=== PATIENT | male | born 1970 | race Caucasian/White ===

== ENCOUNTER 2017-01-19 11:27 | Observation (INO) | payer OTHER ==
[~2017-01-19] VITALS: Ht 165.1 cm; Wt 64.4 kg
[2017-01-19 11:55] LABS: HEMOGLOBIN 15.9 gm/dl (14.0-17.5); RED BLOOD COUNT 5.02 M/UL (4.20-5.50); WHITE BLOOD COUNT 13.2 K/UL (4.5-11.0)
[2017-01-19 12:16] LABS: BUN/CREATININE RATIO 13 (0-10)
[2017-01-19 15:46] LABS: BUN/CREATININE RATIO 15 (0-10)
[2017-01-20 04:25] LABS: HEMOGLOBIN 14.9 gm/dl (14.0-17.5); RED BLOOD COUNT 4.75 M/UL (4.20-5.50); WHITE BLOOD COUNT 12.3 K/UL (4.5-11.0)
[2017-01-20 04:58] LABS: BUN/CREATININE RATIO 16 (0-10)
[2017-01-21 04:04] LABS: HEMOGLOBIN 15.3 gm/dl (14.0-17.5); RED BLOOD COUNT 4.86 M/UL (4.20-5.50); WHITE BLOOD COUNT 10.8 K/UL (4.5-11.0)
[2017-01-21 04:31] LABS: BUN/CREATININE RATIO 14 (0-10)
[2017-01-21] MEDS ORDERED: ADULT LOW DOSE81 MG PO (17:35)
[2017-01-21] MEDS ORDERED: TRICOR 48 MG TA48 MG PO (17:37)
[2017-01-21] MEDS ORDERED: NIACIN CR 500500 MG PO (17:39)
[2017-01-21] MEDS ORDERED: NITROSTAT0.4 MG SL (17:40)
[2017-01-21] MEDS ORDERED: IMDUR ER TAB 3030 MG PO (17:41)
[2017-01-21] MEDS ORDERED: NORVASC 5 MG TAB5 MG PO (17:42)
[2017-07-10] MEDS ORDERED: HABITROL 14 MG P1 EA TD (09:38)
== END 2017-01-21 18:10 | disposition home or self-care (01) ==
LOC: ER1 11:27 → ZEROF 12:50 → MED SURG 4 14:14
PROVIDERS: Emergency Medicine; ADMIT Family Medicine
DX: R07.9 Chest pain, unspecified (principal); R00.1 Bradycardia, unspecified; E78.1 Pure hyperglyceridemia; I10 Essential (primary) hypertension; I16.1 Hypertensive emergency; I25.10 Atherosclerotic heart disease of native coronary artery without angina pectoris; D72.829 Elevated white blood cell count, unspecified; F17.210 Nicotine dependence, cigarettes, uncomplicated; Z88.0 Allergy status to penicillin; Z79.82 Long term (current) use of aspirin; Z79.899 Other long term (current) drug therapy; Z90.49 Acquired absence of other specified parts of digestive tract; Z98.890 Other specified postprocedural states
CPT/HCPCS: ECHO; 36415; 71010; 78452; 80048; 80053; 80061; 82550; 82553; 83036; 83735; 83874; 84439; 84443; 84484; 85025; 85027; 85610; 85730; 93005; 93017; 93306; 99285; A9502; G0378

== ENCOUNTER 2017-01-23 22:40 | Emergency (ER) | payer OTHER ==
[~2017-01-23 22:40] MED LIST: ADULT LOW DOSE81 MG PO; IMDUR ER TAB 3030 MG PO; NIACIN CR 500500 MG PO; NITROSTAT0.4 MG SL; NORVASC 5 MG TAB5 MG PO; TRICOR 48 MG TA48 MG PO
[2017-07-10] MEDS ORDERED: HABITROL 14 MG P1 EA TD (09:38)
== END 2017-01-23 23:50 | disposition home or self-care (01) ==
LOC: ER1 22:40
DX: L27.1 Localized skin eruption due to drugs and medicaments taken internally (principal); T46.7X5A Adverse effect of peripheral vasodilators, initial encounter
CPT/HCPCS: 99283; Q0163

== ENCOUNTER 2017-02-24 22:38 | Observation (INO) | payer OTHER ==
[~2017-02-24] VITALS: Ht 165.1 cm; Wt 64.9 kg
[2017-02-24 22:59] LABS: HEMOGLOBIN 14.7 gm/dl (14.0-17.5); RED BLOOD COUNT 4.66 M/UL (4.20-5.50); WHITE BLOOD COUNT 10.4 K/UL (4.5-11.0)
[2017-02-24 23:48] LABS: BUN/CREATININE RATIO 16 (0-10)
[2017-02-25] MEDS ORDERED: AMLODIPINE BESYL5 MG PO (02:30)
[2017-02-25] MEDS ORDERED: FENOFIBRATE145 MG PO (02:30)
[2017-02-25] MEDS ORDERED: COREG6.25 MG PO (02:31)
[2017-02-25] MEDS ORDERED: LIPITOR TAB 2020 MG PO (02:31)
[2017-02-25] MEDS ORDERED: PLAVIX 75 MG TA75 MG PO (02:32)
[2017-02-25] MEDS ORDERED: IMDUR ER TAB 3030 MG PO (18:18)
[2017-02-25] MEDS ORDERED: TRICOR 145 MG145 MG PO (18:18)
[2017-07-10] MEDS ORDERED: HABITROL 14 MG P1 EA TD (09:38)
== END 2017-02-25 18:50 | disposition home or self-care (01) ==
LOC: ER1 22:38 → M/S 02-25 00:33 → ZEROF 02-25 00:33 → M/S 02-25 01:59
PROVIDERS: Student in an Organized Health Care Education/Training Program; ADMIT Internal Medicine
DX: I25.110 Atherosclerotic heart disease of native coronary artery with unstable angina pectoris (principal); I10 Essential (primary) hypertension; E78.5 Hyperlipidemia, unspecified; F17.210 Nicotine dependence, cigarettes, uncomplicated; Z88.0 Allergy status to penicillin; Z79.82 Long term (current) use of aspirin; Z79.899 Other long term (current) drug therapy; Z90.49 Acquired absence of other specified parts of digestive tract; Z98.890 Other specified postprocedural states
CPT/HCPCS: 36415; 71010; 80053; 82550; 82553; 83874; 84484; 85025; 85610; 85730; 93005; 99285; G0378

== ENCOUNTER 2017-03-18 22:10 | Emergency (ER) | payer OTHER ==
[~2017-03-18 22:10] MED LIST changes: +AMLODIPINE BESYL5 MG PO; +COREG6.25 MG PO; +FENOFIBRATE145 MG PO; +LIPITOR TAB 2020 MG PO; +PLAVIX 75 MG TA75 MG PO; +TRICOR 145 MG145 MG PO
[2017-03-18 22:33] LABS: HEMOGLOBIN 14.4 gm/dl (14.0-17.5); RED BLOOD COUNT 4.56 M/UL (4.20-5.50); WHITE BLOOD COUNT 10.7 K/UL (4.5-11.0)
[2017-03-18 23:13] LABS: BUN/CREATININE RATIO 17 (0-10)
[2017-07-10] MEDS ORDERED: HABITROL 14 MG P1 EA TD (09:38)
== END 2017-03-19 00:46 | disposition left against medical advice (07) ==
LOC: ER1 22:10
PROVIDERS: Student in an Organized Health Care Education/Training Program
DX: R07.89 Other chest pain (principal); I10 Essential (primary) hypertension; E78.5 Hyperlipidemia, unspecified; I21.3 ST elevation (STEMI) myocardial infarction of unspecified site; F17.210 Nicotine dependence, cigarettes, uncomplicated; Z90.49 Acquired absence of other specified parts of digestive tract; Z95.1 Presence of aortocoronary bypass graft; Z88.0 Allergy status to penicillin; Z88.1 Allergy status to other antibiotic agents; Z79.899 Other long term (current) drug therapy
CPT/HCPCS: 36415; 71020; 80053; 82550; 82553; 83874; 84484; 85025; 93005; 99285

== ENCOUNTER → 2017-04-09 | Outpatient (CLI) | payer OTHER ==
[~2017-04-09] MED LIST changes: +HABITROL 14 MG P1 EA TD
[2017-04-09 12:22] LABS: BUN/CREATININE RATIO 14 (0-10)
== END ==
LOC: LAB 11:09
PROVIDERS: Internal Medicine Cardiovascular Disease
DX: R79.89 Other specified abnormal findings of blood chemistry (principal); E78.2 Mixed hyperlipidemia; Z79.899 Other long term (current) drug therapy
CPT/HCPCS: 36415; 80053; 80061; 82248

== ENCOUNTER → 2021-01-19 | Outpatient (CLI) | payer BC, OTHER ==
[~2021-01-19] MED LIST changes: -AMLODIPINE BESYL5 MG PO; +BRILINTA90 MG PO; +CLOPIDOGREL75 MG PO; +DOXYCYCLINE HY100 M2 PO; +HABITROL 21 MG P1 EA TD; +ISOSORBIDE MONO30 MG PO; +LISINOPRIL10 MG PO; +LOPRESSOR 25 MG25 MG PO; +METOPROLOL SUCC25 MG PO; +NORVASC10 MG PO; +PANTOPRAZOLE SO40 MG PO; +PRINIVIL10 MG PO; +PRINIVIL20 MG PO; +RANEXA1000 MG PO; +RANEXA500 MG PO; +TOPROL XL25 MG PO; +TOPROL XL50 MG PO; +TRICOR145 MG PO; +ZOFRAN ODT 4 MG4 MG PO; +ZOFRAN4 MG PO
== END ==
LOC: NM 09:00
DX: I20.0 Unstable angina (principal); R00.2 Palpitations; I21.09 ST elevation (STEMI) myocardial infarction involving other coronary artery of anterior wall; I10 Essential (primary) hypertension
CPT/HCPCS: 78452; A9502; J2785

== ENCOUNTER → 2021-01-24 | Outpatient (CLI) | payer BC, OTHER ==
[2021-01-24 12:26] LABS: BUN/CREATININE RATIO 16 (0-10)
== END ==
LOC: ECHO 01-19 11:00
PROVIDERS: Nurse Practitioner
DX: I20.0 Unstable angina (principal); R00.2 Palpitations; R07.89 Other chest pain; E78.5 Hyperlipidemia, unspecified; I51.7 Cardiomegaly; I07.1 Rheumatic tricuspid insufficiency; Q21.0 Ventricular septal defect
CPT/HCPCS: ECHO; 36415; 71045; 80053; 80061; 84436; 84443; 93306

== ENCOUNTER → 2021-01-27 | Outpatient (CLI) | payer BC, OTHER ==
[2021-01-27 12:48] LABS: HEMOGLOBIN 14.3 gm/dl (14.0-17.5); RED BLOOD COUNT 4.59 M/UL (4.20-5.50); WHITE BLOOD COUNT 8.7 K/UL (4.5-11.0)
[2021-01-27 13:21] LABS: BUN/CREATININE RATIO 17 (0-10)
== END ==
LOC: LAB 11:49
PROVIDERS: Nurse Practitioner
DX: Z01.818 Encounter for other preprocedural examination (principal); I25.10 Atherosclerotic heart disease of native coronary artery without angina pectoris; R07.9 Chest pain, unspecified; I10 Essential (primary) hypertension; E78.5 Hyperlipidemia, unspecified; I42.9 Cardiomyopathy, unspecified; R00.2 Palpitations
CPT/HCPCS: 36415; 80053; 85025

== ENCOUNTER 2021-01-31 09:07 | Outpatient (CLI) | payer BC, OTHER ==
[~2021-01-31] VITALS: Ht 162.6 cm; Wt 68.0 kg
[~2021-01-31 09:07] MED LIST changes: -CLOPIDOGREL75 MG PO; -DOXYCYCLINE HY100 M2 PO; -ISOSORBIDE MONO30 MG PO
[2021-01-31] MEDS ORDERED: ISOSORBIDE MONO30 MG PO (10:01)
[2021-01-31] MEDS ORDERED: CLOPIDOGREL75 MG PO (10:01)
== END 2021-01-31 19:25 | disposition home or self-care (01) ==
LOC: CATH 09:07 → MED SURG 4 17:21 → CATH 19:25
DX: I25.10 Atherosclerotic heart disease of native coronary artery without angina pectoris (principal); I10 Essential (primary) hypertension; E78.5 Hyperlipidemia, unspecified; I25.5 Ischemic cardiomyopathy; Z95.5 Presence of coronary angioplasty implant and graft; Z87.891 Personal history of nicotine dependence; Z82.49 Family history of ischemic heart disease and other diseases of the circulatory system; Z88.0 Allergy status to penicillin; Z88.1 Allergy status to other antibiotic agents; Z79.02 Long term (current) use of antithrombotics/antiplatelets; Z79.899 Other long term (current) drug therapy
CPT/HCPCS: 93005; 99152; 99153; G0278; J0360; J0461; J1644; J2250; J3010; Q9967

== ENCOUNTER 2021-03-28 14:58 | Emergency (ER) | payer BC, OTHER ==
[~2021-03-28 14:58] MED LIST changes: +CLOPIDOGREL75 MG PO; +ISOSORBIDE MONO30 MG PO
[2021-03-28 15:48] LABS: HEMOGLOBIN 16.1 gm/dl (14.0-17.5); RED BLOOD COUNT 4.97 M/UL (4.20-5.50); WHITE BLOOD COUNT 10.7 K/UL (4.5-11.0)
[2021-03-28 16:03] LABS: BUN/CREATININE RATIO 12 (0-10)
[2021-03-28] MEDS ORDERED: DOXYCYCLINE HY100 M2 PO (17:05)
== END 2021-03-28 17:23 | disposition home or self-care (01) ==
LOC: ER1 14:58
PROVIDERS: Emergency Medicine
DX: R51.9 Headache, unspecified (principal); R50.9 Fever, unspecified; I25.10 Atherosclerotic heart disease of native coronary artery without angina pectoris; E78.5 Hyperlipidemia, unspecified; Z95.1 Presence of aortocoronary bypass graft; Z88.0 Allergy status to penicillin; F17.290 Nicotine dependence, other tobacco product, uncomplicated; Z20.822 Contact with and (suspected) exposure to COVID-19
CPT/HCPCS: 0240U; 70450; 71046; 80053; 81001; 85025; 85610; 85730; 93005; 99284

== ENCOUNTER 2021-03-29 07:48 | Emergency (ER) | payer BC, OTHER ==
[~2021-03-29 07:48] MED LIST changes: +DOXYCYCLINE HY100 M2 PO
[2021-03-29 09:39] LABS: HEMOGLOBIN 15.3 gm/dl (14.0-17.5); RED BLOOD COUNT 4.76 M/UL (4.20-5.50); WHITE BLOOD COUNT 12.9 K/UL (4.5-11.0)
[2021-03-29 10:09] LABS: BUN/CREATININE RATIO 11 (0-10)
== END 2021-03-29 11:42 | disposition home or self-care (01) ==
LOC: ER1 07:48
PROVIDERS: Physician Assistant
DX: R53.1 Weakness (principal); I25.2 Old myocardial infarction; E78.5 Hyperlipidemia, unspecified; I11.9 Hypertensive heart disease without heart failure
CPT/HCPCS: 80053; 81001; 82550; 82553; 83874; 84484; 85025; 87040; 93005; 99285

== ENCOUNTER → 2022-01-05 | Outpatient (CLI) | payer BC | LOC: RAD 15:36 | DX: R05.9 Cough, unspecified (principal) | CPT/HCPCS: 71046 ==

== ENCOUNTER → 2022-04-11 | Outpatient (CLI) | payer BC ==
[2022-04-11 15:28] LABS: HEMOGLOBIN 14.8 gm/dl (14.0-17.5); RED BLOOD COUNT 4.67 M/UL (4.20-5.50); WHITE BLOOD COUNT 9.5 K/UL (4.5-11.0)
[2022-04-11 15:57] LABS: BUN/CREATININE RATIO 19 (0-10)
[2022-04-12 09:18] LABS: HBSAG SCREEN Negative (Negative); HCV AB 0.1 (0.0-0.9); HEP A AB, IGM Negative (Negative); HEP B CORE AB, IGM Negative (Negative)
== END ==
LOC: LAB 14:43
PROVIDERS: Physician Assistant
DX: I25.10 Atherosclerotic heart disease of native coronary artery without angina pectoris (principal); E78.5 Hyperlipidemia, unspecified; R74.8 Abnormal levels of other serum enzymes; R73.03 Prediabetes; R39.9 Unspecified symptoms and signs involving the genitourinary system
CPT/HCPCS: 36415; 80053; 80061; 80074; 82728; 83036; 83540; 83550; 84153; 85025

== ENCOUNTER 2022-04-12 16:11 | Emergency (ER) | payer BC | END 2022-04-12 18:27 | disposition left against medical advice (07) | LOC: ER1 16:11 | DX: Z53.21 Procedure and treatment not carried out due to patient leaving prior to being seen by health care provider (principal) ==

== ENCOUNTER 2022-05-12 14:39 | Emergency (ER) | payer BC ==
[2022-05-12 15:34] LABS: HEMOGLOBIN 15.1 gm/dl (14.0-17.5); RED BLOOD COUNT 4.77 M/UL (4.20-5.50); WHITE BLOOD COUNT 9.2 K/UL (4.5-11.0)
[2022-05-12 16:00] LABS: BUN/CREATININE RATIO 14 (0-10)
[2022-05-12] MEDS ORDERED: K-TAB ER10 MEQ PO (16:22)
== END 2022-05-12 17:05 | disposition home or self-care (01) ==
LOC: ER1 14:39
PROVIDERS: Emergency Medicine
DX: N21.0 Calculus in bladder (principal); N30.21 Other chronic cystitis with hematuria; E87.6 Hypokalemia; N40.0 Benign prostatic hyperplasia without lower urinary tract symptoms; E78.5 Hyperlipidemia, unspecified; I11.9 Hypertensive heart disease without heart failure; Z88.0 Allergy status to penicillin
CPT/HCPCS: 80053; 81001; 82550; 82553; 83690; 85025; 93005; 99284

== ENCOUNTER 2022-07-27 14:25 | Emergency (ER) | payer OTHER ==
[~2022-07-27 14:25] MED LIST changes: +K-TAB ER10 MEQ PO
[2022-07-27] MEDS ORDERED: POLYTRIM EYE DR10 ML OU (17:00)
== END 2022-07-27 17:20 | disposition home or self-care (01) ==
LOC: ER1 14:25
DX: H10.9 Unspecified conjunctivitis (principal); Z77.098 Contact with and (suspected) exposure to other hazardous, chiefly nonmedicinal, chemicals; Z88.0 Allergy status to penicillin
CPT/HCPCS: 99283